=== PATIENT | female | born 1960 | race Caucasian/White ===

== ENCOUNTER → 2016-09-21 | Outpatient (CLI) | payer OTHER | LOC: NUC 10:39 | DX: S82.491A Other fracture of shaft of right fibula, initial encounter for closed fracture (principal); Z78.0 Asymptomatic menopausal state; N91.2 Amenorrhea, unspecified; X58.XXXA Exposure to other specified factors, initial encounter; Y93.89 Activity, other specified; Y92.89 Other specified places as the place of occurrence of the external cause; Y99.8 Other external cause status ==